=== PATIENT | female | born 1940 | race Caucasian/White ===

== ENCOUNTER 2020-10-17 11:31 | Emergency (ER) | payer MEDICARE ==
[~2020-10-17] VITALS: Ht 160 cm; Wt 78.9 kg
[~2020-10-17 11:31] MED LIST: ACET-1600 PO; AMLO2.5T5 PO; CETI-158 PO; DOXY25TA18 PO; ESTR0.5T PO; FAMO1TAB3 PO; LORA2TAB PO; LOSA1TAB25 PO; OMEP-110 PO; OXYC1TAB14 PO; PRAV20TA2 PO
--- NOTE | 2020-10-17 11:58 | NUR ---
Bleeding from rectum and in stool, saw PCP Thursday, Thursday lab work was fine r/t stool collection. PCP recommended going to ED.
[2020-10-17] MEDS ORDERED: ESTR0.5T PO (12:22)
[2020-10-17] MEDS ORDERED: ASPI-691 PO (12:22)
[2020-10-17] MEDS ORDERED: SODIUM CHLORIDE FLUSH 10ML SYR IVF ONE (12:30)
[2020-10-17] MEDS ORDERED: SODIUM CHLORIDE 0.9% 1,000 ML IV ONE (12:30)
[2020-10-17 12:40] LABS: BASOPHILS % (AUTO) 1 % (0-1); EOSINOPHILS % (AUTO) 2 % (1-7); LYMPHOCYTES % (AUTO) 20 % (22-44); MEAN CORPUSCULAR HEMOGLOBIN 33.4 pg (27.0-34.8); MEAN CORPUSCULAR HGB CONC 34.1 g/dL (32.4-35.8); MONOCYTES % (AUTO) 12 % (2-9); NEUTROPHILS % (AUTO) 65 % (42-75); PLATELET COUNT 170 x10^3/uL (130-400); RED BLOOD COUNT 4.23 x10^6/uL (3.82-5.3); RED CELL DISTRIBUTION WIDTH 13.2 % (9.6-15.2)
[2020-10-17 12:46] LABS: MD NO
[2020-10-17 12:51] LABS: ALANINE AMINOTRANSFERASE 20 U/L (12-78); ALBUMIN 3.8 g/dL (3.4-5.0); ANION GAP 6 mmol/L (5-15); CALCIUM 8.9 mg/dL (8.5-10.1); CHLORIDE 112 mmol/L (98-107); CREATININE 0.79 mg/dL (0.55-1.02)
[2020-10-17 12:53] LABS: ALKALINE PHOSPHATASE 65 U/L (45-117); BILIRUBIN,TOTAL 0.5 mg/dL (0.2-1.0); TOTAL PROTEIN 7.6 g/dL (6.4-8.2)
--- NOTE | 2020-10-17 13:17 | NUR ---
PT AT CT
[2020-10-17] MEDS ORDERED: OMNIPAQUE 350 MG/ML, 100ML BOTTLE ONE (13:18)
--- NOTE | 2020-10-17 13:26 | NUR ---
PT UP TO RESTROOM
--- NOTE | 2020-10-17 15:06 | NUR ---
PT UP TO BATHROOM
--- NOTE | 2020-10-17 15:40 | NUR ---
JOLEEN HESS WITH DR JORGE FROM [facility] WILL HAVE AN APPOINTMENT TOMORROW AT 1030, NEEDS TO BE IN AT 0930 FOR PAPERWORK #[phone] ADDRESS: [id number] [place], [place]
[2020-10-17 16:28] VITALS: BP 172/88
--- NOTE | 2020-10-17 17:00 | NUR ---
DURING D/C PT ASKED WHAT KIND OF DOCTOR SHE WAS FOLLOWING UP WITH AND SHE WAS INFORMED WITH A [facility] ONCOLOGIST. SHE ASKED FOR CLARIFICATION TO WHAT ONCOLOGIST WAS AND I INFORMED HER IT WAS CANCER. PT SEEMED SURPRISED THAT SHE WAS SEEING AN ONCOLOGIST. OFFERED FOR PT TO TALK TO DOCTOR AND SHE DECLINED. WROTE ON PT PAPERWORK WITH APT TIME PA HAD CALLED THIS RN AND HELPED PT WITH ADDRESS ON HER PHONE.
== END 2020-10-17 16:46 | disposition home or self-care (01) ==
LOC: ED 15:15
DX: K92.2 Gastrointestinal hemorrhage, unspecified (principal); N83.9 Noninflammatory disorder of ovary, fallopian tube and broad ligament, unspecified; J45.909 Unspecified asthma, uncomplicated; I10 Essential (primary) hypertension; E78.5 Hyperlipidemia, unspecified; Z90.49 Acquired absence of other specified parts of digestive tract; Z90.710 Acquired absence of both cervix and uterus; Z90.89 Acquired absence of other organs
CPT/HCPCS: 36415; 74177; 80053; 82378; 85025; 86304; 86850; 86900; 96360; 96361; 99285; J7030; Q9967